=== PATIENT | male | born 1955 | race Asian ===

== ENCOUNTER 2020-08-29 22:11 | Emergency (ER) | payer OTHER ==
[~2020-08-29] VITALS: Ht 167.6 cm; Wt 72.6 kg
[2020-08-29 22:13] VITALS: BP 134/78; Ht 167.6 cm; Wt 72.6 kg
== END 2020-08-29 23:20 | disposition home or self-care (01) ==
LOC: ED 22:11
DX: R51.9 Headache, unspecified (principal); R50.9 Fever, unspecified; Z20.828 Contact with and (suspected) exposure to other viral communicable diseases

== ENCOUNTER 2020-08-31 10:03 | Emergency (ER) | payer OTHER, SELFPAY ==
[~2020-08-31] VITALS: Ht 167.6 cm; Wt 72.6 kg
[2020-08-31 10:05] VITALS: Ht 167.6 cm; Wt 72.6 kg
[2020-08-31 11:34] VITALS: BP 152/82
== END 2020-08-31 11:34 | disposition home or self-care (01) ==
LOC: ED 10:03
DX: U07.1 COVID-19 (principal); K21.9 Gastro-esophageal reflux disease without esophagitis
CPT/HCPCS: U0003